=== PATIENT | male | born 1970 | race Two or more races ===

== ENCOUNTER 2019-04-30 17:31 | Inpatient (IN) | payer BC ==
[~2019-04-30] VITALS: Ht 172.7 cm; Wt 93.1 kg
[2019-04-30] MEDS ORDERED: ONDANSETRON PF 4 MG/2 ML VIAL. IVP ONE (18:45)
[2019-04-30 18:54] LABS: BASO # 0.1 x10^3/uL (0.0-0.2); BASO % 1 % (0-3); EOS # 0.2 x10^3/uL (0.0-0.7); EOS % 2 % (0-3); HEMATOCRIT 45.4 % (39.0-53.0); HEMOGLOBIN 15.9 g/dL (13.0-17.5); LYMPH # 2.2 x10^3/uL (1.0-4.8); LYMPH % 28 % (24-48); MEAN CORPUSCULAR HEMOGLOBIN 31 pg (25-35); MEAN CORPUSCULAR HGB CONC 35 g/dL (31-37); MEAN CORPUSCULAR VOLUME 88 fL (79-100); MONO # 0.7 x10^3/uL (0.0-1.1); MONO % 9 % (0-9); NEUT # 4.7 x10^3/uL (1.8-7.7); NEUT % 60 % (31-73); PLATELET COUNT 217 x10^3/uL (140-400); RED BLOOD COUNT 5.19 x10^6/uL (4.30-5.70); RED CELL DISTRIBUTION WIDTH 12.2 % (11.5-14.5); WHITE BLOOD COUNT 7.9 x10^3/uL (4.0-11.0)
[2019-04-30] MEDS ORDERED: IV NORMAL SALINE 1000ML BAG 1,000 ML IV ONE ×2 (19:00)
[2019-04-30 19:06] LABS: BILIRUBIN,URINE NEGATIVE (NEG); CLARITY,URINE CLEAR; COLOR,URINE YELLOW; NITRITE,URINE NEGATIVE (NEG); PH,URINE 6.5; PROTEIN,URINE NEGATIVE (NEG-TRACE); UROBILINOGEN,URINE 0.2 mg/dL (0.2 mg/dL)
[2019-04-30] MEDS ORDERED: cloNIDine HCL 0.1 MG TABLET ONE (19:10)
[2019-04-30 19:15] LABS: CALCIUM 9.3 mg/dL (8.5-10.1); GFR 80.1; POTASSIUM 3.8 mmol/L (3.5-5.1)
[2019-04-30] MEDS ORDERED: cloNIDine HCL 0.1 MG TABLET PO ONE (19:15)
[2019-04-30 19:18] LABS: AMORPHOUS SEDIMENT,UR PRESENT /HPF; BACTERIA,URINE 0 /HPF (0-FEW); RBC,URINE OCC /HPF (0-2); WBC,URINE OCC /HPF (0-4)
--- NOTE | 2019-04-30 19:30 | RAD ---
CT HEAD WO CONTRAST Date: 04/30/2019 6:32 PM Clinical Indication: Dizzy Comparison: None. Technique: 5 mm axial tomographic images were obtained of the head without contrast. These were viewed on brain and bone windows. One or more of the following dose reduction techniques were utilized: Automated exposure control (AEC), Adjustment of mA and/or kV according to patient size, Use of iterative reconstruction technique such as ASiR, CT scan done according to ALARA and image gently/image wisely Findings: The brain parenchyma is normal in attenuation. No intra- or extra-axial mass or fluid collection. No acute hemorrhage. The ventricles are normal in size, shape, and morphology. The shaw-white matter junction is normal. The subarachnoid cisterns are patent. The visualized paranasal sinuses are normal. The visualized portions of the orbits and globes are normal. The mastoid air cells are clear. The entertainment & media correspondent topogram shows no lytic lesion or fracture. Impression: No acute intracranial process. Electronically signed by: Afshin An MD (04/30/2019 7:27 PM) [id number]
[2019-04-30 19:34] LABS: TOTAL BILIRUBIN 0.6 mg/dL (0.2-1.0)
--- NOTE | 2019-04-30 20:01 | PHYS DOC ---
Past Medical History Past Medical History: No Pertinent History Past Surgical History: No Surgical History Smoking Status: Never Smoker Alcohol Use: Occasionally Adult General Chief Complaint Chief Complaint: DIZZY/LIGHT HEADED HPI HPI Patient is a 48 year old spitting male who presents with multiple medical complaints. Patient reports gradual onset posterior headache starting yesterday. Headache is described as dull and throbbing. Patient also reports dizziness described as vertigo with standing and turning head. Symptoms are associated with feeling off balance and nausea. Patient denies neck pain, tinnitus, loss of hearing, extremity weakness or loss of sensation. Denies vomiting. Reports fatigue sweats but denies fevers, chills. No cough, sore throat, rash or URI symptoms. Denies chest pain palpitations shortness of breath. No other acute symptoms or complaints. Patient is a nonsmoker and drinks 3-5 times weekly primarily on the weekends. Patient does not have a primary care provider and does not take routine medications.[] Review of Systems Review of Systems ROS as per HPI All other systems were reviewed and found to be within normal limits, except as documented in this note. Current Medications Current Medications Current Medications Medications (Trade) Dose Ordered Sig/Macario Start Time Stop Time Status Last Admin Dose Admin Acetaminophen (Tylenol) 650 mg PRN Q4HRS PRN 04/30/19 20:45 Albuterol Sulfate (Ventolin Neb Soln) 2.5 mg PRN Q4HRS PRN 04/30/19 20:45 Clonidine HCl (Catapres) 0.1 mg PRN Q6HRS PRN 04/30/19 20:45 Dextrose (Dextrose 50%-Water Syringe) 12.5 gm PRN Q15MIN PRN 04/30/19 20:45 Docusate Sodium (Colace) 100 mg PRN BID PRN 04/30/19 20:45 Enoxaparin Sodium (Lovenox 40mg Syringe) 40 mg Q24H 04/30/19 21:00 Guaifenesin (Robitussin) 200 mg PRN Q4HRS PRN 04/30/19 20:45 Insulin Human Lispro (HumaLOG) 0-5 UNITS TIDWMEALS 05/01/19 08:00 Lorazepam (Ativan Inj) 0.5 mg 1X ONCE 04/30/19 18:45 04/30/19 18:46 DC 04/30/19 19:13 0.5 MG Lorazepam (Ativan) 0.5 mg PRN Q4HRS PRN 04/30/19 20:45 Ondansetron HCl (Zofran) 4 mg PRN Q4HRS PRN 04/30/19 20:45 Sodium Chloride 1,000 ml @ 100 mls/hr Q10H 04/30/19 21:00 Zolpidem Tartrate (Ambien) 5 mg PRN QHS PRN 04/30/19 20:45 Allergies Allergies Allergies Coded Allergies Type Severity Reaction Last Updated Verified No Known Drug Allergies 04/30/19 No Physical Exam Physical Exam Constitutional: Well developed, well nourished, no acute distress, non-toxic appearance. [] HENT: Normocephalic, atraumatic, bilateral external ears normal, oropharynx moist, nose normal. [] Eyes: PERRLA, EOMI, conjunctiva normal, nystagmus on lateral gaze, fatigues on exam. [] Neck: Normal range of motion, no tenderness, supple, no stridor. [] Cardiovascular:Heart rate regular rhythm, no murmur [] Lungs & Thorax: Bilateral breath sounds clear to auscultation [] Abdomen: Bowel sounds normal, soft, no tenderness. [] Skin: Warm, dry, no erythema. [] Back: No tenderness, no CVA tenderness. [] Extremities: No tenderness, no cyanosis, no clubbing, ROM intact, no edema. [] Neurologic: Alert and oriented X 3, cranial nerves II through XII grossly intact, normal motor function, normal sensory function, no focal deficits noted. Oral finger to nose, negative Romberg sign. [] Psychologic: Affect normal, judgement normal, mood normal. [] Current Patient Data Vital Signs Vital Signs Date Time Temp Pulse Resp B/P (MAP) Pulse Ox O2 Delivery O2 Flow Rate FiO2 04/30/19 19:12 87 165/106 04/30/19 17:54 98.0 15 96 Room Air 98.0 Lab Values Laboratory Tests Test 04/30/19 18:09 04/30/19 18:40 04/30/19 18:55 04/30/19 20:12 Glucose (Fingerstick) 387 mg/dL (70-99) H 278 mg/dL (70-99) H White Blood Count 7.9 x10^3/uL (4.0-11.0) Red Blood Count 5.19 x10^6/uL (4.30-5.70) Hemoglobin 15.9 g/dL (13.0-17.5) Hematocrit 45.4 % (39.0-53.0) Mean Corpuscular Volume 88 fL (79-100) Mean Corpuscular Hemoglobin 31 pg (25-35) Mean Corpuscular Hemoglobin Concent 35 g/dL (31-37) Red Cell Distribution Width 12.2 % (11.5-14.5) Platelet Count 217 x10^3/uL (140-400) Neutrophils (%) (Auto) 60 % (31-73) Lymphocytes (%) (Auto) 28 % (24-48) Monocytes (%) (Auto) 9 % (0-9) Eosinophils (%) (Auto) 2 % (0-3) Basophils (%) (Auto) 1 % (0-3) Neutrophils # (Auto) 4.7 x10^3/uL (1.8-7.7) Lymphocytes # (Auto) 2.2 x10^3/uL (1.0-4.8) Monocytes # (Auto) 0.7 x10^3/uL (0.0-1.1) Eosinophils # (Auto) 0.2 x10^3/uL (0.0-0.7) Basophils # (Auto) 0.1 x10^3/uL (0.0-0.2) Sodium Level 139 mmol/L (136-145) Potassium Level 3.8 mmol/L (3.5-5.1) Chloride Level 100 mmol/L (98-107) Carbon Dioxide Level 29 mmol/L (21-32) Anion Gap 10 (6-14) Blood Urea Nitrogen 16 mg/dL (8-26) Creatinine 1.0 mg/dL (0.7-1.3) Estimated GFR (Cockcroft-Gault) 80.1 BUN/Creatinine Ratio 16 (6-20) Glucose Level 373 mg/dL (70-99) H Calcium Level 9.3 mg/dL (8.5-10.1) Magnesium Level 2.0 mg/dL (1.8-2.4) Total Bilirubin 0.6 mg/dL (0.2-1.0) Aspartate Amino Transferase (AST) 13 U/L (15-37) L Alanine Aminotransferase (ALT) 35 U/L (16-63) Alkaline Phosphatase 129 U/L (46-116) H Troponin I Quantitative < 0.017 ng/mL (0.000-0.055) Total Protein 8.0 g/dL (6.4-8.2) Albumin 4.0 g/dL (3.4-5.0) Albumin/Globulin Ratio 1.0 (1.0-1.7) Thyroid Stimulating Hormone (TSH) 4.915 uIU/mL (0.358-3.74) H Acetone Level Neg (NEG) Urine Collection Type Unknown Urine Color Yellow Urine Clarity Clear Urine pH 6.5 Urine Specific [place] >=1.030 Urine Protein Negative mg/dL (NEG-TRACE) Urine Glucose (UA) >=1000 mg/dL (NEG) Urine Ketones (Stick) Negative mg/dL (NEG) Urine Blood Negative (NEG) Urine Nitrite Negative (NEG) Urine Bilirubin Negative (NEG) Urine Urobilinogen Dipstick 0.2 mg/dL (0.2 mg/dL) Urine Leukocyte Esterase Negative (NEG) Urine RBC Occ /HPF (0-2) Urine WBC Occ /HPF (0-4) Urine Amorphous Sediment Present /HPF Urine Bacteria 0 /HPF (0-FEW) Laboratory Tests 04/30/19 18:40 Laboratory Tests 04/30/19 18:40 EKG EKG [EKG: Reviewed] Radiology/Procedures Radiology/Procedures [CT head: No acute disease per radiology report Chest X-ray: No acute cardiopulmonary disease per radiology report] Course & Med Decision Making Course & Med Decision Making Pertinent Labs and Imaging studies reviewed. (See chart for details) [Patient blood sugar greater than 370. Appearing, new onset diabetes likely contributing to a tension/dizziness. No focal neurologic deficits on exam. Acetone negative normal bicarbonate. Headache, nausea and dizziness improved w ith IV fluids clonidine and Ativan. CT head negative. Patient atraumatic with persistent dizziness upon standing. Will admit to the hospital service for further evaluation and treatment.] Dragon Disclaimer Dragon Disclaimer This electronic medical record was generated, in whole or in part, using a voice recognition dictation system. Departure Departure Impression: Primary Impression: Diabetes mellitus, new onset Additional Impressions: Vertigo Accelerated hypertension Disposition: ADMITTED INPATIENT Condition: IMPROVED Referrals: NO PCP (PCP) Problem Qualifiers ILIA GOLDMAN DO Apr 30, 2019 20:01
--- NOTE | 2019-04-30 20:39 | RAD ---
EXAM: AP View of the chest DATE: 04/30/2019 6:44 PM INDICATION: Shortness of air COMPARISON: No Prior FINDINGS: The heart is not enlarged. Mediastinal and hilar contours are normal. No focal parenchymal airspace opacity. No pleural effusion or pneumothorax. IMPRESSION: 1. No radiographic evidence for acute cardiopulmonary process. Electronically signed by: Andrea Smith MD (04/30/2019 8:36 PM) [id number]
[2019-04-30] MEDS ORDERED: cloNIDine HCL 0.1 MG TABLET PO PRN (20:45)
[2019-04-30] MEDS ORDERED: ALBUTEROL SULFATE 2.5 MG/3 ML NEBU. NEB PRN (20:45)
[2019-04-30] MEDS ORDERED: ONDANSETRON PF 4 MG/2 ML VIAL. IV PRN (20:45)
[2019-04-30] MEDS ORDERED: ZOLPIDEM 5 MG TABLET. PO PRN (20:45)
[2019-04-30] MEDS ORDERED: ACETAMINOPHEN 325 MG TABLET. PO PRN (20:45)
[2019-04-30] MEDS ORDERED: LORazepam 0.5 MG TABLET PO PRN (20:45)
[2019-04-30] MEDS ORDERED: DOCUSATE SODIUM 100 MG CAPSULE. PO PRN (20:45)
[2019-04-30] MEDS ORDERED: guaiFENesin ORAL 200 MG/10 ML LIQUID. PO PRN (20:45)
[2019-04-30] MEDS ORDERED: DEXTROSE 50% 25 GM / 50ML DISP.SYRIN. IV PRN (20:45)
[2019-04-30] MEDS ORDERED: ENOXAPARIN 40 MG/0.4 ML SYRINGE. SQ SCH (21:00)
[2019-04-30 21:08] LABS: FREE T4 1.02 ng/dL (0.76-1.46)
[2019-04-30] MEDS: IV NORMAL SALINE 1000ML BAG 1,000 ML IV SCH (21:09)
[2019-04-30 23:40] VITALS: BP 118/83
--- NOTE | 2019-05-01 | NUR ---
ASSUMED CARE OF PT FROM ED UPON ARRIVAL TO ROOM 660 , ALERT ORIENTED X4 DENIES DIZZINESS OR BLURRED VISION AT THAT TIME, PT PLACED ON CREMATORY OPERATOR SHOWS NSR WITH BRADYCARDIA AT TIMES .ASSESSMENT AND DATA BASE COMPLETED. DISCUSSED CURRENT PLAN OF CARE AND IV FLUIDS CONTINUE ORDERED. AT BEDSIDE WILL STAY WITH PT.PT RESTING WELL THROUGHOUT HOURLY ROUNDINGS, WILL CONITNUE PLANNED AND WILL REPORT CHANGES OR ABNORMAL FINDINGS.
--- NOTE | 2019-05-01 00:06 | PDOC1 ---
History and Physical Date of Admission Date of Admission 05/01/2019 Identification/Chief Complaint Chief Complaint I feel dizzy History of Present Illness History of Present Illness Patient comes today with a history of several days of feeling generalized malaise headache dizziness and today progressed to blurred vision which concerned the patient. Patient denies and neurological deficits no loss of consciousness no double vision no ringing the ears no hemiparesis no hemiplegia no paresthesias have been reported. The patient does not complain of polyuria probably 5 gel or polydipsia either. He was evaluated in the emergency department with laboratory data which revealed hyperglycemia consistent with diabetes mellitus. This can explain his blurred vision or sugar and he was also found to have an elevated TSH. When asked regarding symptoms of hypothyroidism the patient denies symptoms compatible with the disease. No free T4 T3 is available at the present time during my interview. Patient denies any double vision no ringing in the ears no coughing sneezing no palpitations no chest pain no abdominal pain no dysuria no hematuria no hematochezia no lower summary edema no paresthesias have been reported. Been asked to admit the patient for glycemic control and due to the dizziness. The patient is not exhibiting neurological deficits post fingers intact [id number] is intact as well. Reassurances been provided to the patient plan of care sprain detail to him and his at bedside. Current Problem List Problem List Problems Medical Problems: (1) Accelerated hypertension Status: Acute (2) Diabetes mellitus, new onset Status: Acute (3) Vertigo Status: Acute Current Medications Current Medications Current Medications Medications (Trade) Dose Ordered Sig/Macario Start Time Stop Time Status Last Admin Dose Admin Acetaminophen (Tylenol) 650 mg PRN Q4HRS PRN 04/30/19 20:45 Albuterol Sulfate (Ventolin Neb Soln) 2.5 mg PRN Q4HRS PRN 04/30/19 20:45 Clonidine HCl (Catapres) 0.1 mg PRN Q6HRS PRN 04/30/19 20:45 Dextrose (Dextrose 50%-Water Syringe) 12.5 gm PRN Q15MIN PRN 04/30/19 20:45 Docusate Sodium (Colace) 100 mg PRN BID PRN 04/30/19 20:45 Enoxaparin Sodium (Lovenox 40mg Syringe) 40 mg Q24H 04/30/19 21:00 04/30/19 21:10 40 MG Guaifenesin (Robitussin) 200 mg PRN Q4HRS PRN 04/30/19 20:45 Insulin Human Lispro (HumaLOG) 0-5 UNITS TIDWMEALS 05/01/19 08:00 Lorazepam (Ativan Inj) 0.5 mg 1X ONCE 04/30/19 18:45 04/30/19 18:46 DC 04/30/19 19:13 0.5 MG Lorazepam (Ativan) 0.5 mg PRN Q4HRS PRN 04/30/19 20:45 Ondansetron HCl (Zofran) 4 mg PRN Q4HRS PRN 04/30/19 20:45 Sodium Chloride 1,000 ml @ 100 mls/hr Q10H 04/30/19 21:00 04/30/19 21:09 100 MLS/HR Zolpidem Tartrate (Ambien) 5 mg PRN QHS PRN 04/30/19 20:45 Allergies Allergies Allergies Coded Allergies Type Severity Reaction Last Updated Verified No Known Drug Allergies 04/30/19 No ROS Review of System CONSTITUTIONAL: No fever or chills EYES: No recent changes SKIN: No rash or itching CARDIOVASCULAR: No chest pain, syncope, palpitations, or edema RESPIRATORY: No SOB or cough GASTROINTESTINAL: No nausea, vomiting or abdominal pain NEUROLOGICAL: No headaches or weakness ENDOCRINE: No cold or heat intolerance GENITOURINARY: No urgency or frequency of urination MUSCULOSKELETAL: No back pain or joint pain LYMPHATICS: No enlarged lymph nodes PSYCHIATRIC: No anxiety or depression Physical Exam Physical Exam Gen.: well-developed well-nourished in no apparent distress Head: Normal shape atraumatic Eyes: Pupils equal reactive to light and accommodation, normal conjunctivae and lids Ears: Normal shape Nose: Normal shape no trauma Mouth: No exudates of the back of throat no thrush no lesions Neck: Supple no JVD no carotid bruit or lymphadenopathy no thyromegaly Chest: Lungs clear to auscultation with good inspiratory effort no crackles rales or rhonchi Cardiovascular: S1-S2 regular rhythm no murmurs gallops or rubs Abdomen: Bowel sounds present soft nontender no hepatosplenomegaly appreciated sign Extremities: No clubbing no cyanosis no edema peripheral pulses palpated bilaterally Neurological: Alert awake oriented in person time place and situation, cranial nerves II through XII intact, no motor or sensory deficits appreciated Psych: Appropriate mood, cooperative Vitals Vitals Vital Signs Date Time Temp Pulse Resp B/P (MAP) Pulse Ox O2 Delivery O2 Flow Rate FiO2 04/30/19 22:14 59 97 04/30/19 19:12 165/106 04/30/19 17:54 98.0 15 Room Air 98.0 Labs Labs Laboratory Tests Test 04/30/19 18:09 04/30/19 18:40 04/30/19 18:55 04/30/19 20:12 Glucose (Fingerstick) 387 mg/dL (70-99) 278 mg/dL (70-99) White Blood Count 7.9 x10^3/uL (4.0-11.0) Red Blood Count 5.19 x10^6/uL (4.30-5.70) Hemoglobin 15.9 g/dL (13.0-17.5) Hematocrit 45.4 % (39.0-53.0) Mean Corpuscular Volume 88 fL (79-100) Mean Corpuscular Hemoglobin 31 pg (25-35) Mean Corpuscular Hemoglobin Concent 35 g/dL (31-37) Red Cell Distribution Width 12.2 % (11.5-14.5) Platelet Count 217 x10^3/uL (140-400) Neutrophils (%) (Auto) 60 % (31-73) Lymphocytes (%) (Auto) 28 % (24-48) Monocytes (%) (Auto) 9 % (0-9) Eosinophils (%) (Auto) 2 % (0-3) Basophils (%) (Auto) 1 % (0-3) Neutrophils # (Auto) 4.7 x10^3/uL (1.8-7.7) Lymphocytes # (Auto) 2.2 x10^3/uL (1.0-4.8) Monocytes # (Auto) 0.7 x10^3/uL (0.0-1.1) Eosinophils # (Auto) 0.2 x10^3/uL (0.0-0.7) Basophils # (Auto) 0.1 x10^3/uL (0.0-0.2) Sodium Level 139 mmol/L (136-145) Potassium Level 3.8 mmol/L (3.5-5.1) Chloride Level 100 mmol/L (98-107) Carbon Dioxide Level 29 mmol/L (21-32) Anion Gap 10 (6-14) Blood Urea Nitrogen 16 mg/dL (8-26) Creatinine 1.0 mg/dL (0.7-1.3) Estimated GFR (Cockcroft-Gault) 80.1 BUN/Creatinine Ratio 16 (6-20) Glucose Level 373 mg/dL (70-99) Calcium Level 9.3 mg/dL (8.5-10.1) Magnesium Level 2.0 mg/dL (1.8-2.4) Total Bilirubin 0.6 mg/dL (0.2-1.0) Aspartate Amino Transf (AST/SGOT) 13 U/L (15-37) Alanine Aminotransferase (ALT/SGPT) 35 U/L (16-63) Alkaline Phosphatase 129 U/L (46-116) Troponin I Quantitative < 0.017 ng/mL (0.000-0.055) Total Protein 8.0 g/dL (6.4-8.2) Albumin 4.0 g/dL (3.4-5.0) Albumin/Globulin Ratio 1.0 (1.0-1.7) Thyroid Stimulating Hormone (TSH) 4.915 uIU/mL (0.358-3.74) Free Thyroxine 1.02 ng/dL (0.76-1.46) Free Triiodothyronine (T3) pg/mL 3.82 pg/mL (2.18-3.98) Acetone Level Neg (NEG) Urine Collection Type Unknown Urine Color Yellow Urine Clarity Clear Urine pH 6.5 Urine Specific [place] >=1.030 Urine Protein Negative mg/dL (NEG-TRACE) Urine Glucose (UA) >=1000 mg/dL (NEG) Urine Ketones (Stick) Negative mg/dL (NEG) Urine Blood Negative (NEG) Urine Nitrite Negative (NEG) Urine Bilirubin Negative (NEG) Urine Urobilinogen Dipstick 0.2 mg/dL (0.2 mg/dL) Urine Leukocyte Esterase Negative (NEG) Urine RBC Occ /HPF (0-2) Urine WBC Occ /HPF (0-4) Urine Amorphous Sediment Present /HPF Urine Bacteria 0 /HPF (0-FEW) Test 04/30/19 22:46 Glucose (Fingerstick) 295 mg/dL (70-99) Laboratory Tests Test 04/30/19 18:09 04/30/19 18:40 04/30/19 18:55 04/30/19 20:12 Glucose (Fingerstick) 387 mg/dL (70-99) 278 mg/dL (70-99) White Blood Count 7.9 x10^3/uL (4.0-11.0) Red Blood Count 5.19 x10^6/uL (4.30-5.70) Hemoglobin 15.9 g/dL (13.0-17.5) Hematocrit 45.4 % (39.0-53.0) Mean Corpuscular Volume 88 fL (79-100) Mean Corpuscular Hemoglobin 31 pg (25-35) Mean Corpuscular Hemoglobin Concent 35 g/dL (31-37) Red Cell Distribution Width 12.2 % (11.5-14.5) Platelet Count 217 x10^3/uL (140-400) Neutrophils (%) (Auto) 60 % (31-73) Lymphocytes (%) (Auto) 28 % (24-48) Monocytes (%) (Auto) 9 % (0-9) Eosinophils (%) (Auto) 2 % (0-3) Basophils (%) (Auto) 1 % (0-3) Neutrophils # (Auto) 4.7 x10^3/uL (1.8-7.7) Lymphocytes # (Auto) 2.2 x10^3/uL (1.0-4.8) Monocytes # (Auto) 0.7 x10^3/uL (0.0-1.1) Eosinophils # (Auto) 0.2 x10^3/uL (0.0-0.7) Basophils # (Auto) 0.1 x10^3/uL (0.0-0.2) Sodium Level 139 mmol/L (136-145) Potassium Level 3.8 mmol/L (3.5-5.1) Chloride Level 100 mmol/L (98-107) Carbon Dioxide Level 29 mmol/L (21-32) Anion Gap 10 (6-14) Blood Urea Nitrogen 16 mg/dL (8-26) Creatinine 1.0 mg/dL (0.7-1.3) Estimated GFR (Cockcroft-Gault) 80.1 BUN/Creatinine Ratio 16 (6-20) Glucose Level 373 mg/dL (70-99) Calcium Level 9.3 mg/dL (8.5-10.1) Magnesium Level 2.0 mg/dL (1.8-2.4) Total Bilirubin 0.6 mg/dL (0.2-1.0) Aspartate Amino Transf (AST/SGOT) 13 U/L (15-37) Alanine Aminotransferase (ALT/SGPT) 35 U/L (16-63) Alkaline Phosphatase 129 U/L (46-116) Troponin I Quantitative < 0.017 ng/mL (0.000-0.055) Total Protein 8.0 g/dL (6.4-8.2) Albumin 4.0 g/dL (3.4-5.0) Albumin/Globulin Ratio 1.0 (1.0-1.7) Thyroid Stimulating Hormone (TSH) 4.915 uIU/mL (0.358-3.74) Free Thyroxine 1.02 ng/dL (0.76-1.46) Free Triiodothyronine (T3) pg/mL 3.82 pg/mL (2.18-3.98) Acetone Level Neg (NEG) Urine Collection Type Unknown Urine Color Yellow Urine Clarity Clear Urine pH 6.5 Urine Specific [place] >=1.030 Urine Protein Negative mg/dL (NEG-TRACE) Urine Glucose (UA) >=1000 mg/dL (NEG) Urine Ketones (Stick) Negative mg/dL (NEG) Urine Blood Negative (NEG) Urine Nitrite Negative (NEG) Urine Bilirubin Negative (NEG) Urine Urobilinogen Dipstick 0.2 mg/dL (0.2 mg/dL) Urine Leukocyte Esterase Negative (NEG) Urine RBC Occ /HPF (0-2) Urine WBC Occ /HPF (0-4) Urine Amorphous Sediment Present /HPF Urine Bacteria 0 /HPF (0-FEW) Test 04/30/19 22:46 Glucose (Fingerstick) 295 mg/dL (70-99) VTE Prophylaxis Ordered VTE Prophylaxis Devices: No VTE Pharmacological Prophylaxi: Yes Assessment/Plan Assessment/Plan New-onset diabetes Dizziness which seems to be related to his new diagnosis Blurred vision secondary to the new diagnosis of diabetes most likely Elevated TSH Plan: We'll check free T4 and free T3 We'll start insulin Diabetic education Nutritional indication Further recommendations based on the clinical course IV fluid resuscitation done in the emergency department DVT prophylaxis with KAYDEN Davis MD May 01, 2019 00:06
[2019-05-01 03:49] VITALS: BP 116/80
[2019-05-01] MEDS: IV NORMAL SALINE 1000ML BAG 1,000 ML IV SCH (05:31)
[2019-05-01 07:10] VITALS: BP 133/90
--- NOTE | 2019-05-01 07:15 | EKG ---
[facility] [address] [place] [address] Test Date: 2019-04-30 Test Time: 18:12:37 Pat Name: DOUGLAS HIGGINS Department: Room: [facility] Gender: M Shaft Headman: : 1970 Requested By: ILIA GOLDMAN Order Number: [id number] Reading MD: Measurements Intervals [place] Rate: 72 P: 31 MS: 164 QRS: 26 QRSD: 92 T: 28 QT: 348 QTc: 382 Interpretive Statements SINUS RHYTHM OTHERWISE NORMAL ECG RI6.01 No previous ECG available for comparison
[2019-05-01] MEDS ORDERED: INSULIN GLARGINE SYRINGE. SQ ONE (09:00)
[2019-05-01] MEDS: INSULIN LISPRO 300 UNITS/3 ML VIAL. SQ SCH ×2 (09:05→12:35)
[2019-05-01 11:00] VITALS: BP 127/90
[2019-05-01] MEDS ORDERED: LISI-338 PO (12:44)
[2019-05-01] MEDS ORDERED: METF500T16 PO (12:44)
[2019-05-01 15:00] VITALS: BP 140/89
--- NOTE | 2019-05-01 15:12 | PDOC3 ---
Discharge Summary Visit Information Date of Admission: Apr 30, 2019 Date of Discharge: May 01, 2019 Admitting Diagnosis Comment: New-onset diabetes Dizziness which seems to be related to his new diagnosis Blurred vision secondary to the new diagnosis of diabetes most likely Elevated TSH Final Diagnosis Problems Medical Problems: (1) Accelerated hypertension Status: Acute (2) Diabetes mellitus, new onset Status: Acute (3) Vertigo Status: Acute Brief Hospital Course Allergies Allergies Coded Allergies Type Severity Reaction Last Updated Verified No Known Drug Allergies 04/30/19 No Vital Signs Vital Signs Date Time Temp Pulse Resp B/P (MAP) Pulse Ox O2 Delivery O2 Flow Rate FiO2 05/01/19 11:00 98.6 70 18 127/90 (102) 97 Room Air 98.6 Lab Results Laboratory Tests Test 04/30/19 18:09 04/30/19 18:40 04/30/19 18:55 04/30/19 20:12 Glucose (Fingerstick) 387 mg/dL (70-99) 278 mg/dL (70-99) White Blood Count 7.9 x10^3/uL (4.0-11.0) Red Blood Count 5.19 x10^6/uL (4.30-5.70) Hemoglobin 15.9 g/dL (13.0-17.5) Hematocrit 45.4 % (39.0-53.0) Mean Corpuscular Volume 88 fL (79-100) Mean Corpuscular Hemoglobin 31 pg (25-35) Mean Corpuscular Hemoglobin Concent 35 g/dL (31-37) Red Cell Distribution Width 12.2 % (11.5-14.5) Platelet Count 217 x10^3/uL (140-400) Neutrophils (%) (Auto) 60 % (31-73) Lymphocytes (%) (Auto) 28 % (24-48) Monocytes (%) (Auto) 9 % (0-9) Eosinophils (%) (Auto) 2 % (0-3) Basophils (%) (Auto) 1 % (0-3) Neutrophils # (Auto) 4.7 x10^3/uL (1.8-7.7) Lymphocytes # (Auto) 2.2 x10^3/uL (1.0-4.8) Monocytes # (Auto) 0.7 x10^3/uL (0.0-1.1) Eosinophils # (Auto) 0.2 x10^3/uL (0.0-0.7) Basophils # (Auto) 0.1 x10^3/uL (0.0-0.2) Sodium Level 139 mmol/L (136-145) Potassium Level 3.8 mmol/L (3.5-5.1) Chloride Level 100 mmol/L (98-107) Carbon Dioxide Level 29 mmol/L (21-32) Anion Gap 10 (6-14) Blood Urea Nitrogen 16 mg/dL (8-26) Creatinine 1.0 mg/dL (0.7-1.3) Estimated GFR (Cockcroft-Gault) 80.1 BUN/Creatinine Ratio 16 (6-20) Glucose Level 373 mg/dL (70-99) Calcium Level 9.3 mg/dL (8.5-10.1) Magnesium Level 2.0 mg/dL (1.8-2.4) Total Bilirubin 0.6 mg/dL (0.2-1.0) Aspartate Amino Transf (AST/SGOT) 13 U/L (15-37) Alanine Aminotransferase (ALT/SGPT) 35 U/L (16-63) Alkaline Phosphatase 129 U/L (46-116) Troponin I Quantitative < 0.017 ng/mL (0.000-0.055) Total Protein 8.0 g/dL (6.4-8.2) Albumin 4.0 g/dL (3.4-5.0) Albumin/Globulin Ratio 1.0 (1.0-1.7) Thyroid Stimulating Hormone (TSH) 4.915 uIU/mL (0.358-3.74) Free Thyroxine 1.02 ng/dL (0.76-1.46) Free Triiodothyronine (T3) pg/mL 3.82 pg/mL (2.18-3.98) Acetone Level Neg (NEG) Urine Collection Type Unknown Urine Color Yellow Urine Clarity Clear Urine pH 6.5 Urine Specific [place] >=1.030 Urine Protein Negative mg/dL (NEG-TRACE) Urine Glucose (UA) >=1000 mg/dL (NEG) Urine Ketones (Stick) Negative mg/dL (NEG) Urine Blood Negative (NEG) Urine Nitrite Negative (NEG) Urine Bilirubin Negative (NEG) Urine Urobilinogen Dipstick 0.2 mg/dL (0.2 mg/dL) Urine Leukocyte Esterase Negative (NEG) Urine RBC Occ /HPF (0-2) Urine WBC Occ /HPF (0-4) Urine Amorphous Sediment Present /HPF Urine Bacteria 0 /HPF (0-FEW) Test 04/30/19 22:46 05/01/19 08:19 05/01/19 11:49 Glucose (Fingerstick) 295 mg/dL (70-99) 311 mg/dL (70-99) 190 mg/dL (70-99) Laboratory Tests Test 04/30/19 18:09 04/30/19 18:40 04/30/19 18:55 04/30/19 20:12 Glucose (Fingerstick) 387 mg/dL (70-99) 278 mg/dL (70-99) White Blood Count 7.9 x10^3/uL (4.0-11.0) Red Blood Count 5.19 x10^6/uL (4.30-5.70) Hemoglobin 15.9 g/dL (13.0-17.5) Hematocrit 45.4 % (39.0-53.0) Mean Corpuscular Volume 88 fL (79-100) Mean Corpuscular Hemoglobin 31 pg (25-35) Mean Corpuscular Hemoglobin Concent 35 g/dL (31-37) Red Cell Distribution Width 12.2 % (11.5-14.5) Platelet Count 217 x10^3/uL (140-400) Neutrophils (%) (Auto) 60 % (31-73) Lymphocytes (%) (Auto) 28 % (24-48) Monocytes (%) (Auto) 9 % (0-9) Eosinophils (%) (Auto) 2 % (0-3) Basophils (%) (Auto) 1 % (0-3) Neutrophils # (Auto) 4.7 x10^3/uL (1.8-7.7) Lymphocytes # (Auto) 2.2 x10^3/uL (1.0-4.8) Monocytes # (Auto) 0.7 x10^3/uL (0.0-1.1) Eosinophils # (Auto) 0.2 x10^3/uL (0.0-0.7) Basophils # (Auto) 0.1 x10^3/uL (0.0-0.2) Sodium Level 139 mmol/L (136-145) Potassium Level 3.8 mmol/L (3.5-5.1) Chloride Level 100 mmol/L (98-107) Carbon Dioxide Level 29 mmol/L (21-32) Anion Gap 10 (6-14) Blood Urea Nitrogen 16 mg/dL (8-26) Creatinine 1.0 mg/dL (0.7-1.3) Estimated GFR (Cockcroft-Gault) 80.1 BUN/Creatinine Ratio 16 (6-20) Glucose Level 373 mg/dL (70-99) Calcium Level 9.3 mg/dL (8.5-10.1) Magnesium Level 2.0 mg/dL (1.8-2.4) Total Bilirubin 0.6 mg/dL (0.2-1.0) Aspartate Amino Transf (AST/SGOT) 13 U/L (15-37) Alanine Aminotransferase (ALT/SGPT) 35 U/L (16-63) Alkaline Phosphatase 129 U/L (46-116) Troponin I Quantitative < 0.017 ng/mL (0.000-0.055) Total Protein 8.0 g/dL (6.4-8.2) Albumin 4.0 g/dL (3.4-5.0) Albumin/Globulin Ratio 1.0 (1.0-1.7) Thyroid Stimulating Hormone (TSH) 4.915 uIU/mL (0.358-3.74) Free Thyroxine 1.02 ng/dL (0.76-1.46) Free Triiodothyronine (T3) pg/mL 3.82 pg/mL (2.18-3.98) Acetone Level Neg (NEG) Urine Collection Type Unknown Urine Color Yellow Urine Clarity Clear Urine pH 6.5 Urine Specific [place] >=1.030 Urine Protein Negative mg/dL (NEG-TRACE) Urine Glucose (UA) >=1000 mg/dL (NEG) Urine Ketones (Stick) Negative mg/dL (NEG) Urine Blood Negative (NEG) Urine Nitrite Negative (NEG) Urine Bilirubin Negative (NEG) Urine Urobilinogen Dipstick 0.2 mg/dL (0.2 mg/dL) Urine Leukocyte Esterase Negative (NEG) Urine RBC Occ /HPF (0-2) Urine WBC Occ /HPF (0-4) Urine Amorphous Sediment Present /HPF Urine Bacteria 0 /HPF (0-FEW) Test 04/30/19 22:46 05/01/19 08:19 05/01/19 11:49 Glucose (Fingerstick) 295 mg/dL (70-99) 311 mg/dL (70-99) 190 mg/dL (70-99) Brief Hospital Course Mr. Ruiz is a 48 old male who presented with [new onset diagnosis of diabetes with a presenting glycemia of 300. The patient was asymptomatic except for headache and vertigo. The patient was given IV fluid resuscitation during his hospital stay and he was started on Lantus insulin as well. At the time of my note hemoglobin A1c still pending and won't be readily available for another 24-48 hours according to nursing staff. The patient received dietary counseling and we will continue with oral medication the outpatient setting in order to maximize the chances of adherence. I have provided myself instructions regarding glycemia checking dietary changes and his life and also the importance of establishing care with a primary care physician. Initially the patient had a hypertension that most likely was due to headache that brought him initially to the emergency department. No neurological deficits were evident on upon admission and he continued to have normal neurological exam throughout his hospital stay. Signs and symptoms of alarm were discussed prior to dismissal and all of his concerns were addressed the best of my abilities with his at bedside as well. Gen.: well-developed well-nourished in no apparent distress Head: Normal shape atraumatic Eyes: Pupils equal reactive to light and accommodation, normal conjunctivae and lids Neck: Supple no JVD no carotid bruit or lymphadenopathy no thyromegaly Chest: Lungs clear to auscultation with good inspiratory effort no crackles rales or rhonchi Cardiovascular: S1-S2 regular rhythm no murmurs gallops or rubs Abdomen: Bowel sounds present soft nontender no hepatosplenomegaly appreciated signExtremities: No clubbing no cyanosis no edema peripheral pulses palpated bilaterally Neurological: Alert awake oriented in person time place and situation, cranial nerves II through XII intact, no motor or sensory deficits appreciated Psych: Appropriate mood, cooperative Discharge Information Condition at Discharge: Improved Follow Up: Weeks Disposition/Orders: D/C to Home Scheduled Lisinopril (Lisinopril) 5 Mg Tablet, 1 TAB PO DAILY for HTN, #30 Ref 5 Prescribed by: KAYDEN REYNA MD on 05/01/19 1244 Metformin Hcl (Metformin Hcl) 500 Mg Tablet, 500 MG PO BIDWMEALS for ANTI-DIABET IC for 30 Days, #60 Ref 0 Prescribed by: KAYDEN REYNA MD on 05/01/19 1244 KAYDEN REYNA MD May 01, 2019 15:12
--- NOTE | 2019-05-01 16:10 | NUR ---
Discharge Note: DOUGLAS HIGGINS[address] [place] [address] Discharge instructions and discharge home medications reviewed with Patient and a copy given. All questions have been answered and understanding verbalized. The following instructions and handouts were given: Hypoglycemia Discontinued lines and drains: IV catheter removed intact. Patient discharged to Home with self care via family transportation
[2019-05-01] MEDS ORDERED: INSULIN GLARGINE SYRINGE. SQ SCH (21:00)
[2019-05-02 00:07] LABS: HEMOGLOBIN A1C 10.9 % (4.8-5.6)
== END 2019-05-01 16:30 | disposition home or self-care (01) | DRG 639 ==
LOC: ER 17:31 → 6 SOUTH 21:00
PROVIDERS: ADMIT Internal Medicine; ATTEND Internal Medicine
DX: E11.65 Type 2 diabetes mellitus with hyperglycemia (principal); I10 Essential (primary) hypertension; E03.9 Hypothyroidism, unspecified; H53.8 Other visual disturbances
CPT/HCPCS: 36415; 70450; 71045; 80053; 81001; 82010; 82962; 83036; 83735; 84439; 84443; 84481; 84484; 84681; 85025; 93005; 96372; 99285; J1650; J1815; J2060; J2405; J7030; G0378